=== PATIENT | male | born 1985 | race Caucasian/White ===

== ENCOUNTER 2020-08-31 23:21 | Emergency (ER) | payer MEDICAID ==
[~2020-08-31] VITALS: Ht 175.3 cm; Wt 70.3 kg
[2020-08-31 23:27] VITALS: Ht 175.3 cm; Wt 70.3 kg
[2020-09-01 01:45] VITALS: BP 128/67
== END 2020-09-01 01:45 | disposition home or self-care (01) ==
LOC: ED 23:21
DX: L08.9 Local infection of the skin and subcutaneous tissue, unspecified (principal); L02.511 Cutaneous abscess of right hand; Z48.01 Encounter for change or removal of surgical wound dressing
CPT/HCPCS: J0696